=== PATIENT | female | born 1975 | race Caucasian/White ===

== ENCOUNTER 2021-11-24 11:22 | Emergency (ER) | payer OTHER, SELFPAY ==
--- NOTE | ~2021-11-24 | XR_ITS ---
EXAMINATION: XR abdomen/kub 1V DATE: 11/24/2021 11:59 INDICATION: Left flank pain. TECHNIQUE: A supine view of the abdomen on 2 radiographs was obtained. COMPARISON: None. FINDINGS: There are no dilated loops of bowel. There is a moderate volume of stool in the colon. A ca lcification in left pelvis is likely a phlebolith. IMPRESSION: 1. No visible urolithiasis. Reviewed, dictated and finalized at location A. LY SERVICE ASSISTANT IMPRESSION: 1. No visible urolithiasis.
[2021-11-24 11:48] VITALS: BP 132/87; PULSE 73; RESP 18; TEMP 36.7; O2SAT 100
--- NOTE | 2021-11-24 12:03 | ED.GENADULT ---
HPI - General Adult General Chief complaint: Urogenital-Female Stated complaint: Urinary Problem Time Seen by Provider: 11/24/21 11:48 Source: patient Limitations: no limitations History of Present Illness HPI narrative: 46-year-old female presented for complaint of intermittent left mid/lower back pain, urinary frequency, and dribbling. States the back pain is severe when it comes, causing nausea, but resolves on its own quickly. She denies dysuria, hematuria, nausea, vomiting, fever or chills. She has taken 2 rounds of antibiotics in the last 2 weeks per her PCP for UTI symptoms. States symptoms have not improved. Related Data Home Medications Medication Instructions Recorded Confirmed hydrochlorothiazide 25 mg PO DAILY 11/24/21 11/24/21 hydrocodone-acetaminophen 1 tablet PO Q8H PRN 11/24/21 11/24/21 sulfamethoxazole-trimethoprim See Rx Instructions .ROUTE .COMPLEX 11/24/21 11/24/21 Allergies Allergy/AdvReac Type Severity Reaction Status Date / Time ketorolac Allergy Severe Mouth Verified 09/25/18 12:24 swelling tramadol Allergy Severe Mouth Verified 09/25/18 12:24 swelling Review of Systems Review of Systems: CONSTITUTIONAL: Denies body aches, fever, chills, or sweats. CARDIOVASCULAR: Denies chest pain, palpitations, or edema. RESPIRATORY: Denies cough or dyspnea. GASTROINTESTINAL: Denies abdominal pain, nausea, vomiting, or diarrhea. GENITOURINARY: Reports frequency, urgency, flank pain denies hematuria, dysuria SKIN: Denies rash, itching, or wounds. MUSCULOSKELETAL: Denies back pain or myalgia. PMFSH Comments At time of signature, I have reviewed and agree with nursing past medical, surgical, social and family history unless otherwise noted. Please see nursing chart for further information. There is no relevant family history pertinent to the presenting complaint Exam Narrative: GENERAL: Well-appearing and in no acute distress. HEAD: Normocephalic EYES: EOMI. . ENT: Mucous membranes pink and moist. NECK: Normal AROM. Supple. CHEST: No respiratory distress. Clear to auscultation. HEART: Regular rate and rhythm. ABDOMEN: Soft, nontender, nondistended, normal active bowel sounds. No CVA tenderness MUSCULOSKELETAL: No bony tenderness. SKIN: Warm, dry, no rash. NEURO: No focal deficits. Alert and oriented x3. Gait steady. PSYCH: Normal affect. No signs of depression or anxiety. Course Course Emergency Course: Patient is aware of diagnosis, understands and agrees to treatment plan. Anticipatory guidance given. Patient agrees to follow-up as directed and is aware of reasons to seek care at the emergency department. Portions of this record may have been created with voice recognition software Level of Care: Express Care Visit Vital Signs Vital signs: Vital Signs Temperature 98.1 F 11/24/21 11:48 Pulse Rate 73 11/24/21 11:48 Respiratory Rate 18 11/24/21 11:48 Blood Pressure 132/87 11/24/21 11:48 Pulse Oximetry 100 11/24/21 11:48 Temperature 98.1 F 11/24/21 11:48 Pulse Rate 73 11/24/21 11:48 Respiratory Rate 18 11/24/21 11:48 Blood Pressure 132/87 11/24/21 11:48 Pulse Oximetry 100 11/24/21 11:48 Reviewed Medical Decision Making Differential Diagnosis Differential Diagnosis: UTI, cystitis, pyelonephritis, renal stone, colitis, musculoskeletal pain Vital Signs Vital Signs: Vital Signs Temperature 98.1 F 11/24/21 11:48 Pulse Rate 73 11/24/21 11:48 Respiratory Rate 18 11/24/21 11:48 Blood Pressure 132/87 11/24/21 11:48 Pulse Oximetry 100 11/24/21 11:48 Temperature 98.1 F 11/24/21 11:48 Pulse Rate 73 11/24/21 11:48 Respiratory Rate 18 11/24/21 11:48 Blood Pressure 132/87 11/24/21 11:48 Pulse Oximetry 100 11/24/21 11:48 Lab Data Lab results reviewed: Yes I reviewed the patient's lab results. Labs: Urine Glucose Negative Reference Range:
== END 2021-11-24 12:15 | disposition home or self-care (01) ==
PROVIDERS: Emergency Provider Nurse Practitioner Family
DX: R35.0 Frequency of micturition (principal)
CPT/HCPCS: 74018; 81003; 87086; 87088; 99213; G0463

== ENCOUNTER 2022-09-28 08:28 | Emergency (ER) | payer OTHER, SELFPAY ==
--- NOTE | ~2022-09-28 | XR_ITS ---
EXAMINATION: XR chest 2V DATE: 09/28/2022 08:45 INDICATION: Cough and fever TECHNIQUE: PA and lateral views of the chest are obtained. COMPARISON: None available FINDINGS: The lungs are free of acute opacities. No pleural effusion or pneumothorax. The cardiomedia stinal silhouette is normal. The visualized bones and soft tissues are unremarkable. IMPRESSION: 1. No acute cardiopulmonary abnormality. Reviewed, dictated and finalized at location B. P CLEANER
[2022-09-28 08:33] VITALS: BP 115/66; PULSE 72; RESP 16; TEMP 36.6; O2SAT 100
--- NOTE | 2022-09-28 08:45 | ED.URI ---
HPI - URI/Sore Throat General Chief Complaint: Upper Respiratory Infection Stated Complaint: Shortness of Breath/Chest Congestion Time Seen by Provider: 09/28/22 08:38 Source: patient Mode of arrival: ambulatory Limitations: no limitations History of Present Illness HPI Narrative: Ms. Bird is a 47-year-old female patient presenting to the clinic today with complaints of shortness of breath, chest congestion, chest discomfort, productive cough with yellow phlegm, and fever x2 weeks. She reports her last fever was yesterday and was 102? F. elicited complaint: sore throat and nasal congestion Related Data Home Medications Medication Instructions Recorded Confirmed hydrochlorothiazide 25 mg tablet 25 mg PO DAILY 11/24/21 11/24/21 hydrocodone 7.5 mg-acetaminophen 1 tablet PO Q8H PRN Pain 11/24/21 11/24/21 325 mg tablet Allergies Allergy/AdvReac Type Severity Reaction Status Date / Time ketorolac Allergy Severe Mouth Verified 09/28/22 09:03 swelling tramadol Allergy Severe Mouth Verified 09/28/22 09:03 swelling Review of Systems Review of Systems: Pertinent positives per HPI. Patient denies any rash, headache, visual changes, dizziness, palpitations, nausea, vomiting, diarrhea, constipation, abdominal pain, or any urinary issues. PMFSH Comments At the time of my signature, I reviewed and agree with the nursing past medical, surgical, social, and family history. There is no relevant family history pertinent to the patient complaint. Exam Narrative: General: Well-developed, well nourished, in no apparent distress Head: Normocephalic, atraumatic Eyes: Pupils equally round and reactive to light bilaterally, EOM intact, sclera and conjunctive clear, no discharge, lids normal Ears: TMs intact and clear, ear canals clear, no drainage, grossly hearing normal. Nose: Nares patent, clear nasal discharge, no inflammation, no sinus tenderness. Mouth: Oral pharynx without lesions or masses, good dentition, MMM. postnasal drip Neck: Supple, trachea midline, no enlargement of anterior or posterior cervical nodes, no thyroid masses or goiter palpable. Cardio: Regular rate and rhythm, s1 and s2 normal, no murmur appreciated. Resp: Diminished in the bases otherwise clear, no rhonchi, rales, wheezing or rubs Course Course Emergency Course: Portions of this record may have been created with voice recognition software. Level of Care: Express Care Visit Vital Signs Vital signs: Vital Signs Temperature 36.6 C 09/28/22 08:33 Pulse Rate 72 09/28/22 08:33 Respiratory Rate 16 09/28/22 08:33 Blood Pressure 115/66 09/28/22 08:33 Pulse Oximetry 100 09/28/22 08:33 Oxygen Delivery Room Air 09/28/22 08:33 Temperature 36.6 C 09/28/22 08:33 Pulse Rate 72 09/28/22 08:33 Respiratory Rate 16 09/28/22 08:33 Blood Pressure 115/66 09/28/22 08:33 Pulse Oximetry 100 09/28/22 08:33 Oxygen Delivery Room Air 09/28/22 08:33 Vital signs reviewed MDM - URI/Sore Throat MDM Narrative Medical decision making narrative: At the time of visit patient is resting comfortably on the exam table. Chest x-ray is negative in the clinic today. I suspect the patient has bronchitis. I will send in prescription for azithromycin, prednisone, and albuterol inhaler. Supportive measures were discussed with the patient she voiced understanding of discharge instructions and agrees to treatment plan Differential Diagnosis Differential diagnosis: Likely upper respiratory infection, otitis media, sinusitis, viral infection, bronchitis, influenza, pharyngitis and other ( COVID) Imaging Data Radiologist's impression: [facility] [place] [id number] XRay Report Signed Patient: Isha Bird : 1975 MR#: [id number] Age/Sex: 47 / F Acct:[id number] Loc: [facility]? ? ADM Date: 09/28/22Attending Dr: Ordering Physician
== END 2022-09-28 08:55 | disposition home or self-care (01) ==
PROVIDERS: Emergency Provider Nurse Practitioner Family; PCP Internal Medicine
DX: J40 Bronchitis, not specified as acute or chronic (principal)
CPT/HCPCS: 71046; 99213; G0463

== ENCOUNTER 2025-07-07 14:02 | Emergency (ER) | payer OTHER, SELFPAY ==
--- NOTE | ~2025-07-07 | XR_ITS ---
Examination: XR foot LT min 3V Clinical History: pain and swelling proximal lateral foot,NKI Comparison: None Technique: 4 views left foot Findings/impression: 1. No fracture or dislocation left foot. 2. Calcaneal plantar and Achilles enthesophytes. Reviewed, dictated and finalized at location R.
[2025-07-07 14:08] VITALS: BP 135/70; PULSE 73; RESP 16; TEMP 36.6; O2SAT 100
--- NOTE | 2025-07-07 14:28 | ED_ITS ---
HPI - Extremity Injury (Lower) General Chief Complaint: Extremity Injury, Lower Stated Complaint: Left Foot Pain Time Seen by Provider: 07/07/25 14:20 Source: patient, RN notes reviewed and old records reviewed Mode of arrival: ambulatory Limitations: no limitations History of Present Illness HPI Narrative: 50 year old female who [facility] with complaints of left foot pain to the lateral aspect of her foot with stated palpable knot noted this morning.. Patient reports no injury to her left foot or any pain to the plantar aspect of her left foot, states increased pain with ambulation. Patient does have sometrace swelling to bilateral feet states that she does take water pill daily for swlling. Patient reports that she has taking some Ibuprofen for her discomfort, does take [place] for chronic back pain. MD complaint: other (left lateral foot pain) Onset (ago): day(s) (this morning) Severity scale (1-10): 7 Exacerbating factors: weight bearing Treatments prior to arrival: NSAIDS Related Data Home Medications ?Medication ?Instructions ?Recorded ?Confirmed ?Last Taken ?Type hydrochlorothiazide 25 mg tablet 25 mg PO DAILY 09/28/22 Unknown History hydrocodone 7.5 mg-acetaminophen 1 tablet PO Q8H PRN P ain 11/24/21 09/28/22 Unknown History 325 mg tablet Allergies Allergy/AdvReac Type Severity Reaction Status Date / Time ketorolac Allergy Severe Mouth Verified 09/28/22 09:03 swelling tramadol Allergy Severe Mouth Verified 09/28/22 09:03 swelling Review of Systems Review of Systems: CONSTITUTIONAL: Denies fever, chills, or sweats. EYES: Denies visual changes, redness, or discharge. ENT: Denies rhinorrhea, congestion, sore throat, or otalgia. CARDIOVASCULAR: Denies chest pain, palpitations, or edema. RESPIRATORY: Denies cough or dyspnea. GASTROINTESTINAL: Denies abdominal pain, nausea, vomiting, or diarrhea. GENITOURINARY: Denies dysuria or hematuria. SKIN: Denies rash or itching. MUSCULOSKELETAL:Reports chronic back pain with pain to lateral aspect of left foot since this morning with no known injury, or myalgia. NEUROLOGIC: Denies headache, numbness, or weakness. PSYCHIATRIC: Denies anxiety or depression. All systems reviewed & are unremarkable except as noted in HPI and below [facility] Past Medical History Medical History (Updated 07/08/25 @ 15:21 by Barb Rowe NP) Chronic back pain Pneumonia Hypertension Surgical History Surgical History (Updated 07/08/25 @ 15:09 by Barb Rowe NP) History of tubal ligation Previous section x2 History of lung surgery removal of benign mass Social History Social History (Updated 07/08/25 @ 15:12 by Barb Rowe NP) Smoking status: Never smoker Alcohol intake: current Alcohol use details: rare social Substance use: current Substance use type: opiates Last use: for pain management of chronic back pain Living arrangements: with family Gender identity (if verbalized by the patient): Female Comments At time of signature, agree with nursing past medical, surgical, social and family history. There is no relevant family history pertinent to the presenting complaint Exam Narrative: GENERAL: Well-appearing, well-nourished, and in no acute distress. HEAD: Normocephalic, atraumatic. EYES: PERRLA and EOMI. ENT: Nares clear, no rhinorrhea or epistaxis. Mucous membranes moist.TM;s normal throat pink with no redness NECK: Supple.no lymphadenopathy CHEST: Clear to auscultation. No respiratory distress. no cough noted SAO2 100% on room air HEART: Regular rate and rhythm. No murmur heard. Normal peripheral pulses. ABDOMEN: Soft, nontender, nondistended, normal active bowel sounds. EXTREMITIES: Normal range of motion. No edema.Exception noted to left foot with trace amount of edema noted, reports pain to lateral left foot which increases with ambulation,denies any injury to her foot,pedal pulse strong to left foot, no palpable knot noted to lateral foot is area of tenderness to lateral left foot SKIN: Warm, dry, no rash. NEURO: No focal deficits. Alert and oriented x3. Course Course Emergency Course: Patient is aware of diagnosis, understands and agrees to treatment plan.? Anticipatory guidance given.? Patient agrees to follow-up as directed and is aware of reasons to seek care at the emergency department. Portions of this record may have been created with voice recognition software Level of Care: Express Care Visit Vital Signs Vital signs: Vital Signs Temperature 36.6 C 07/07/25 14:08 Pulse Rate 73 07/07/25 14:08 Respiratory Rate 16 07/07/25 14:08 Blood Pressure 135/70 07/07/25 14:08 Pulse Oximetry 100 07/07/25 14:08 Oxygen Delivery Room Air 07/07/25 14:08 Temperature 36.6 C 07/07/25 14:08 Pulse Rate 73 07/07/25 14:08 Respiratory Rate 16 07/07/25 14:08 Blood Pressure 135/70 07/07/25 14:08 Pulse Oximetry 100 07/07/25 14:08 Oxygen Delivery Room Air 07/07/25 14:08 Reviewed MDM - Extremity Injury (Lower) Differential Diagnosis Differential diagnosis: Likely other (left foot pain, increased pain with ambulation, bone spurs left foot, edema left foot) Medical Records Attestation: I reviewed the patient's medical records. Imaging Data My impression: calcaneal plantar and Achilles enthesophytes, no fracture or dislocations Radiologist's impression: [address] [place] [address] XRay Report Signed Patient: Isha Bird : 1975 MR#: [id number] Age: 50 Acct:[id number] Loc: [facility] ADM Date: 07/07/[address]: Ordering Physician: Barb Rowe APRN Date of Service: 07/07/25 Procedure(s): XR foot LT min 3V Accession Number(s): [id number] cc: Charlene, Prashant Gamboa MD; Barb Rowe APRN~ Examination: XR foot LT min 3V Clinical History: pain and swelling proximal lateral foot,NKI Comparison: None Technique: 4 views left foot Findings/impression: 1. No fracture or dislocation left foot. 2. Calcaneal plantar and Achilles enthesophytes. Reviewed, dictated and finalized at location R. Please be advised this is a medical document. It is intended for [id number] communication. It is written in medical language and may contain unfamiliar abbreviations or verbiage. Medical documents are intended to carry relevant information, facts as evident, and the clinical opinion of the practitioner at the time of the encounter. This report may have been done utilizing a voice recognition system. Attempts have been made to correct errors. However, there may be uncorrected grammatical, spelling, and recognition errors present. The file time of this note does not necessarily represent the time of service. Dictated By: Mendez Pineda MD 07/07/25 1440 Signed By: <Electronically signed by Mendez Pineda MD in OV> Critical Care Time Critical Care Time Critical Care Time: No Discharge Plan Discharge Clinical Impression: Arthralgia of foot, left, Bone spur of left foot Patient Disposition: Home Condition: Stable Instructions: Antibiotic Form, Heel Spur (ED) Additional Instructions: Prednisone take as prescribed for the next 5 days with food Tylenol for lesser pain Ibuprofen regularly for the next 2-3 days for the inflammation 400 mg 3 times daily with food Follow-up with orthopedic surgeon or Podiatry for further evaluation of bone spurs Follow-up with PCP if further problems or concerns Ice to the area 20-30 minutes 4-6 times a day Elevate above heart If your symptoms persist, change or worsen significantly before you can contact your personal physician then please, without delay, go to the emergency department for further evaluation. Follow-up with PCP in 7-10 days or sooner if needed Follow up with PCP soon in regards to your blood pressure which is elevated above threshold for referral. Blood pressure above 120/80 may indicate pre- hypertension. 135/70 Patient Language: Croatian Prescriptions: New prednisone 20 mg tablet 40 mg PO DAILY Qty: 10 0RF Rx Instructions: take with food take in the mornings No Action hydrocodone-acetaminophen 7.5-325 mg tablet 1 tablet PO Q8H PRN (Reason: Pain) hydrochlorothiazide 25 mg tablet 25 mg PO DAILY prednisone 20 mg tablet 40 mg PO DAILY 5 Days Qty: 10 0RF Follow-up/Referrals: Charlene,Prashant Gamboa MD [Primary Care Provider] Time of Disposition: 14:57 Quality [place] Coma Scale Eyes: Open Verbal: Oriented and Alert Motor: Follows Commands [place] Coma Total Score: 15
== END 2025-07-07 15:03 | disposition home or self-care (01) ==
PROVIDERS: Emergency Provider Registered Nurse; PCP Internal Medicine
DX: M25.572 Pain in left ankle and joints of left foot (principal); M77.32 Calcaneal spur, left foot; I10 Essential (primary) hypertension
CPT/HCPCS: 73630; 99213; G0463